=== PATIENT | female | born 1970 | race Caucasian/White ===

== ENCOUNTER 2018-03-31 09:13 | Emergency (ER) | payer BC, SELFPAY ==
[2018-03-31 09:41] VITALS: BP 103/68; PULSE 71; RESP 14; TEMP 36.7; O2SAT 100
--- NOTE | 2018-03-31 10:31 | DI.REPORT_ITS ---
SYMPTOM/DIAGNOSIS: TRAUMA, PAIN OVER LATERAL MALLEOLUS RIGHT ANKLE: There is soft tissue swelling around the malleoli. No fracture or ankle mortise widening is seen. Small bony densities seen at the posterior aspect of the navicular which may represent a small ossicle vs related to an old injury. There is a spur at the dorsal aspect of the navicular. IMPRESSION: No acute abnormality.
--- NOTE | 2018-03-31 10:31 | ED.GENADUL ---
Disposition Clinical Impression: Ankle sprain Disposition: HOME Condition: Fair Instructions: Ankle Sprain (ED) Additional Instructions: Encourage rest, ice, elevation. Tylenol and/or ibuprofen as needed for discomfort. Continue to use a lace up ankle brace for pain persists. Please follow-up with primary care in 1-2 weeks for reevaluation. If you develop increased pain, difficulty ambulating or other new/worsening symptoms please seek care urgently once again. Please wear more supportive shoes. Referrals: Kerrie Díaz [Primary Care Provider] - Medical Decision Making - Radiology Data Radiology results: report reviewed X-ray reviewed by radiologist. Advise no acute fracture. Degenerative changes of the talus and navicular. All avulsion fracture off the dorsal aspect of the navicular. Soft tissues are significant for lateral malleolus soft tissue swelling - Medical Decision Making Patient presents today with chief complaint of right ankle pain. She does have soft tissue swelling. Pain is primarily over the ATFL. However, she does also endorse some discomfort over the lateral malleolus is now having the difficulty with ambulation. Will obtain radiographic images to evaluate for possible bony abnormality. However, primary concern is for sprain. Patient is currently elevating. She declines any analgesics at this time. X-rays reviewed by myself with no acute abnormalities noted.. X-rays reviewed we reviewed by radiologist. They advised him some degenerative changes lateral soft tissue swelling. No acute fracture or dislocation noted. Discussed these findings with the patient. Encourage rest, ice, elevation. Pain is primarily over the ATFL. I advised that she has an ankle sprain. She will be fitted with an lace up ankle brace to help support the ankle and help with the swelling. We discussed new/worsening symptoms when to seek care urgently once again. Advise follow-up with primary care in 1-2 weeks if symptoms persist. All of her questions and concerns were addressed she is in agreement this plan. We discussed activities that she should avoid that may cause increased pain. History of Present Illness - General Chief complaint: Orthopedic Stated complaint: FOOT/ANKLE INJURY Time Seen by Provider: 03/31/18 10:31 Source: patient, RN notes reviewed Mode of arrival: ambulatory Limitations: no limitations - History of Present Illness Initial comments: Patient is a 47-year-old female presenting today with chief complaint of right ankle pain. She reports that 3 days ago she misstepped going up a flight of stairs. Denies any actual fall. Describes internal rotational incident. States that she did feel a rubber band snap and indicates the lateral ankle as the area of this discomfort. States initially the pain was quite minimal. However, after sitting on the foot yesterday she began having more severe pain. States that now she is having difficulty with ambulation. She walked into the department with an antalgic gait. Indicates the area of lateral malleolus is area of primary discomfort. Denies other injury the time the incident. Denies any calf or knee pain. Denies any pain in the foot. States she is ibuprofen yesterday but has not had anything as of yet for discomfort today. - Related Data Levonorgestrel [Mirena] 1 each IY 11/28/12 Aspirin [Aspirin EC] 81 mg PO DAILY tab-cap 01/19/14 Hydrochlorothiazide 25 mg PO DAILY tab-cap 01/19/14 Valsartan [Diovan] 160 mg PO DAILY tab-cap 01/19/14 Ibuprofen 600 mg PO QID PRN #20 tablet 07/15/17 TraZODone [Desyrel] 50 mg PO HS 07/15/17 Allergies Allergy/AdvReac Type Severity Reaction Status Date / Time sulfamethoxazole Allergy Hives Unverified 07/15/17 09:52 [From Bactrim] trimethoprim [From Bactrim] Allergy Hives Unverified 07/15/17 09:52 Review of Systems Constitutional: no symptoms reported. denies: chills, fever, malaise Respiratory: no symptoms reported Musculoskeletal: as per HPI Skin: as per HPI Neurological: as per HPI Past Medical History - Past Medical History Medical history: hypertension Surgical history: non-contributory General Exam - General Limitations: no limitations General appearance: alert, in no apparent distress - Eye Eye exam: Present: normal apperance - Respiratory Respiratory exam: Absent: respiratory distress - Extremities Exam Extremities exam: Present: tenderness, normal capillary refill, joint swelling. Absent: normal inspection (Exam the patient's right lower extremity significant for swelling along the lateral malleolus. No pain of the Achilles, negative Andrea test. No pain on palpation of the foot. No pain with palpation over the proximal fifth metatarsal. No pain on palpation over the calcaneus. Pain is primarily over the ATFL although she does endorse some discomfort with palpation of the lateral malleolus. No pain medially. Calf is soft and nontender. No pain to palpation of the fibular head or neck.), full ROM (Range of motion is limited secondary to discomfort, particularly with dorsiflexion.), calf tenderness - Neurological Exam Neurological exam: Present: alert, abnormal gait (Antalgic gait). Absent: motor sensory deficit - Psychiatric Psychiatric exam: Present: normal affect, normal mood - Skin Skin exam: Present: warm, dry, intact, normal color Course Vital Signs - 24 hr 03/31/18 09:41 Temperature 36.7 C Pulse 71 Respiratory 14 Rate Blood Pressure 103/68 Pulse Oximetry 100
--- NOTE | 2018-03-31 12:32 | DI.VRAD_ITS ---
EXAM: XR Right Ankle Complete, 3 or more Views EXAM DATE/TIME: 03/31/2018 10:32 AM CLINICAL HISTORY: 47 years old, female; Signs and symptoms; Other: Trauma, pain over lateral malleolus TECHNIQUE: XR Right ankle 3 or more views. COMPARISON: No relevant prior studies available. FINDINGS: Bones/joints: No acute fracture. Degenerative changes in the talus and navicular. Old avulsion fracture off the dorsal aspect of the navicular Soft tissues: Lateral malleolar soft tissue swelling. IMPRESSION: 1. Lateral malleolar soft tissue swelling. 2. No acute fracture. Dictated and Authenticated by: Hemant Blanca MD. Ordering:SADIQ HOWELL MD
== END 2018-03-31 12:43 | disposition home or self-care (01) ==
PROVIDERS: Emergency Provider Physician Assistant; PCP Nurse Practitioner Family
DX: S93.491A Sprain of other ligament of right ankle, initial encounter (principal); W10.8XXA Fall (on) (from) other stairs and steps, initial encounter; I10 Essential (primary) hypertension
CPT/HCPCS: 29515; 99284; 73610; 99282; L1902

== ENCOUNTER 2018-05-16 00:56 | Outpatient (CLI) | payer BC, SELFPAY ==
--- NOTE | 2018-05-16 12:50 | DI.MAMMO_ITS ---
SYMPTOM/DIAGNOSIS: SCREENING, Z12.31 PREVENTATIVE CARE Z00.00 MAMMOGRAM: Mammograms were interpreted according to the usual protocol including computer analysis with CAD system, tomosynthesis and C view imaging. Comparison with prior examinations. Breast density B. No masses or microcalcifications are seen. There is nothing to suggest malignancy. IMPRESSION: Negative mammogram. Routine screening is recommended. Category I. MQSA ASSESSMENT OF FINDINGS: Negative. Category 1. Patient will receive a letter notifying them of these results. BI-RADS category B. There are scattered areas of fibroglandular density.
== END 2018-05-16 01:16 ==
PROVIDERS: PCP Nurse Practitioner Family; Visit Provider Nurse Practitioner Family
DX: Z00.00 Encounter for general adult medical examination without abnormal findings (principal); Z12.31 Encounter for screening mammogram for malignant neoplasm of breast
CPT/HCPCS: 77063; 77067

== ENCOUNTER 2018-05-30 15:51 | Outpatient (CLI) | payer BC, SELFPAY ==
[2018-05-30 17:36] LABS: ALT 42 U/L (12-78); AST 25 U/L (15-37); Albumin 4.2 g/dL (3.4-5.0); Alkaline Phosphatase 69 U/L (46-116); Anion Gap 11.2 mmol/L (3-11); BUN 16 mg/dL (7-18); Bilirubin, Total 0.3 mg/dL (0.2-1.0); CO2 27.8 mmol/L (21.0-32.0); CREATININE 0.81 mg/dL (0.55-1.02); Calcium 8.9 mg/dL (8.5-10.1); Chloride 102 mmol/L (98-107); Cholesterol 145 mg/dL (50-200); Glucose 96 mg/dL (70-100); HDL Cholesterol 50 mg/dL (40-60); LDL CHOLESTEROL 78 mg/dL (<100); Potassium 3.9 mmol/L (3.5-5.1); Sodium 141 mmol/L (136-145); Triglyceride 138 mg/dL (30-150)
== END 2018-05-30 16:11 ==
LOC: LBO 06-04 14:24 → NCHCO 06-06 06:54
PROVIDERS: PCP Nurse Practitioner Family; Visit Provider Nurse Practitioner Family
DX: Z00.00 Encounter for general adult medical examination without abnormal findings (principal); Z13.228 Encounter for screening for other metabolic disorders; Z13.220 Encounter for screening for lipoid disorders
CPT/HCPCS: 36415; 80053; 80061; 83721

== ENCOUNTER 2019-02-21 18:39 | Emergency (ER) | payer BC, SELFPAY ==
[2019-02-21 18:51] VITALS: BP 134/88; PULSE 116; RESP 18; TEMP 37.5; O2SAT 95
[2019-02-21] MEDS: Normal Saline 1,000 ML 1000 ML IV (19:39)
[2019-02-21 19:43] LABS: Lactate-non-spesis 0.7 mmol/l (0.6-1.4)
[2019-02-21 19:50] LABS: Abs Immature Grans 0.03 k/cumm (0.0-0.09); Absolute Basophil Count 0.03 k/cumm (0.0-0.2); Absolute Eosinophil Count 0.19 k/cumm (0.0-0.7); Absolute Lymphocyte Count 0.89 k/cumm (1.2-3.4); Absolute Monocyte Count 0.87 k/cumm (0.11-0.7); Absolute Neutrophil Count 9.58 k/cumm (1.2-6.7); Basophils % 0.3; Eosinophils % 1.6; HCT 39.6 % (36.0-46.0); HGB 13.5 g/dL (12.0-15.5); Immature Grans % 0.3; Lymphocytes % 7.7; Mean Corp. HGB Concentration 34.1 g/dL (32.0-36.0); Mean Corpuscular Hemoglobin 29.7 pg (27.0-33.0); Mean Corpuscular Volume 87.2 fL (80-95); Mean Platelet Volume 9.9 fL (8.0-11.0); Monocytes % 7.5; Neutrophils % 82.6; Platelet Count 319 x1000/uL (130-400); RBC 4.54 m/cumm (4.00-5.20); RBC Distribution Width 13.1 % (11.7-14.6)
[2019-02-21 19:57] LABS: ALT 46 U/L (12-78); AST 26 U/L (15-37); Alkaline Phosphatase 80 U/L (46-116); Anion Gap 12.4 mmol/L (3-11); BUN 20 mg/dL (7-18); Bilirubin, Total 0.4 mg/dL (0.2-1.0); CO2 26.6 mmol/L (21.0-32.0); Chloride 99 mmol/L (98-107); Glucose 99 mg/dL (70-100); Potassium 3.4 mmol/L (3.5-5.1); Sodium 138 mmol/L (136-145); Total Protein 7.4 g/dL (6.4-8.2)
[2019-02-21] MEDS: Omnipaque 350 MG/ML 100 ML BTL IJ (20:01)
--- NOTE | 2019-02-21 20:12 | DI.CT_ITS ---
SYMPTOM/DIAGNOSIS: STRIDOR, SENSATION OF FOREIGN BODY IN THROAT, COUGH CHEST CT: CT examination of the chest was performed with a bolus infusion of 100 cc's of Omnipaque 350. Note is made of an approximately 2 cm. in diameter sclerotic lesion of what appears to be T 4 vertebral body. This is nonspecific but probably most likely to represent a benign process. No additional bony lesion is seen. Images obtained through the upper abdomen show unremarkable appearance of visualized portions of liver, spleen, adrenals, kidneys and pancreas. There are multiple calcified mediastinal lymph nodes consistent with prior granulomatous disease. Calcified right axillary lymph nodes also noted. No gross non-calcified adenopathy is seen. The tracheobronchial tree appears intact as visualized. There are predominantly linear areas of increased radiodensity in the left upper lobe and also in portions of the right lung which may represent scarring. Additionally, there are nonspecific areas of ground glass opacity in left upper lobe, chronic versus acute. Comparison with previous chest radiograph of 09/01/12 showed abnormal radiodensities in a region corresponding to the left upper lobe findings on today's examination and also corresponding to some of the right upper lobe findings on today's study. CONCLUSION: Intrapulmonary findings as described above are most consistent with chronic changes but the possibility of superimposed acute ground glass opacities in the left upper lobe/lingula cannot be excluded. Follow up chest CT recommended to re-evaluate this area in 4-[address]: CT examination of the cervical region was performed following the intravenous infusion of 100 cc's of Omnipaque 350. Visualized portions of the brain are unremarkable. Orbital structures appear intact. No significant cervical adenopathy. No abnormality of the vascular structures. Tracheal laryngeal structures appear intact. No free air is seen in the soft tissues. No evidence of abscess. CONCLUSION: Negative cervical CT.
[2019-02-21 20:25] VITALS: BP 119/72; PULSE 111; RESP 18; O2SAT 95
--- NOTE | 2019-02-21 21:13 | DI.VRAD_ITS ---
EXAM: CT Neck With Contrast EXAM DATE/TIME: 02/21/2019 7:23 PM CLINICAL HISTORY: 48 years old, female; Mass, lump, or swelling in the chest; Other: Sensation of fb in throat, cough; Additional info: Stridor, sensation of fb in throat, cough TECHNIQUE: Imaging protocol: Axial computed tomography images of the neck with intravenous contrast. Coronal and sagittal reformatted images were created and reviewed. Radiation optimization: All CT scans at this facility use at least one of these dose optimization techniques: automated exposure control; mA and/or kV adjustment per patient size (includes targeted exams where dose is matched to clinical indication); or iterative reconstruction. COMPARISON: CR CHEST 2 VIEWS PA,LAT 09/01/2012 7:31 AM FINDINGS: Nasopharynx: Normal. Oropharynx: Normal. No significant tonsillar enlargement. Hypopharynx: Normal. Larynx: Normal. Normal epiglottis. Retropharyngeal space: Normal. Submandibular/Parotid glands: Normal. Glands are normal in size. Thyroid: Normal. No enlarged or calcified nodules. Lymph nodes: There mild degenerative changes noted in the cervical spine therapy 2 small nonspecific level II lymph nodes in the neck. Trachea: Visualized trachea is unremarkable. Lungs: Normal as visualized. Bones/joints: Normal. No acute fracture. Soft tissues: Normal. No significant soft tissue swelling. IMPRESSION: 1. No evidence of a foreign body in the airway or esophagus. 2. No worrisome mass the neck is identified. EXAM: CT Chest With Contrast EXAM DATE/TIME: 02/21/2019 7:23 PM CLINICAL HISTORY: 48 years old, female; Mass, lump, or swelling in the chest; Other: Sensation of fb in throat, cough; Additional info: Stridor, sensation of fb in throat, cough TECHNIQUE: Imaging protocol: Axial computed tomography images of the chest with intravenous contrast. Coronal and sagittal reformatted images were created and reviewed. Radiation optimization: All CT scans at this facility use at least one of these dose optimization techniques: automated exposure control; mA and/or kV adjustment per patient size (includes targeted exams where dose is matched to clinical indication); or iterative reconstruction. Contrast material: [id number]; Contrast volume: 100 ml; Contrast route: IV 20G RAC; COMPARISON: CR CHEST 2 VIEWS PA,LAT 09/01/2012 7:31 AM FINDINGS: Lungs: The left lower lobe shows minimal scarring. Pleural space: Extensive abnormal reticular markings the in the left upper lobe extending in predominantly into the anterior segment and also somewhat posteriorly all way to the pleura with a small pleural thickening. Heart: Unremarkable. No cardiomegaly. No pericardial effusion. Aorta: Unremarkable. No aortic aneurysm. Lymph nodes: There diffuse calcified mediastinal lymph nodes bilaterally. The Bones/joints: In the mid thoracic spine there is some bridging anterolateral osteophytes. The upper vertebra at this bridging area shows a right-sided area of sclerosis measuring 1 cm in diameter. Soft tissues: Unremarkable. IMPRESSION: 1. Numerous calcified mediastinal lymph nodes consistent with previous granulomatous disease. There is a large amount of abnormal reticular densities in the left upper lobe predominantly the anterior segment. This all could just be scarring but a small air pneumonia in this region can't be excluded. 2. 1 cm area of sclerosis in a upper thoracic vertebral body anteriorly. This is nonspecific but probably benign. Dictated and Authenticated by: Yaw Penaloza MD. Ordering:WESLEY Baird MD
--- NOTE | 2019-02-21 21:15 | ED.GENADUL_ITS ---
Discharge Plan Disposition Patient Disposition: HOME Discharge Details Chief Complaint: RespSymp Clinical Impression: Pneumonia Primary Care Provider: Beltran Prince ED Provider: Oli Chávez Home Meds and New Rx's Prescriptions: New levofloxacin [Levaquin] 750 mg tablet 750 mg PO DAILY Qty: 4 RF: 0 Continued aspirin 81 MG tablet,delayed release (DR/EC) 81 mg PO DAILY RF: 0 hydrochlorothiazide 12.5 MG capsule 25 mg PO DAILY RF: 0 trazodone 50 MG tablet 50 mg PO HS RF: 0 ibuprofen 600 MG tablet 600 mg PO QID PRN (Reason: Pain) Qty: 20 RF: 0 bupropion HCl [Wellbutrin SR] 100 mg Tablet Sustained-Release 12 Hr 50 mg PO BID RF: 0 losartan 100 mg Tablet 100 mg PO DAILY RF: 0 No Action levonorgestrel [Mirena] 1 EACH intrauterine device 1 ea Intrauterine RF: 0 Discharge Instructions Instructions: Pneumonia (ED) Additional Instructions: Please take antibiotic as prescribed. Drink plenty of fluid to stay hydrated. Rest. Take ibuprofen 600mg every 6 hours for fever. Follow-up with your doctor. Call to schedule an appointment to be seen early next week. Return to the ER for worsening or new concerning symptoms. Referrals: Beltran Prince, [employer] [Primary Care Provider] - Medical Decision Making 48-year-old female here with nonproductive cough for the past couple days with associated chills and discomfort in her throat. Patient is saturating well in no respiratory distress. I do not appreciate any crackles on auscultation of her lungs. She is tachycardic and appears dehydrated. 1 L normal saline IV fluid bolus was given. Labs reviewed and mild leukocytosis noted. CT of neck interpreted by radiology: IMPRESSION: 1. No evidence of a foreign body in the airway or esophagus. 2. No worrisome mass the neck is identified. CT of chest interpreted by radiology: IMPRESSION: 1. Numerous calcified mediastinal lymph nodes consistent with previous granulomatous disease. There is a large amount of abnormal reticular densities in the left upper lobe predominantly the anterior segment. This all could just be scarring but a small air pneumonia in this region can't be excluded. 2. 1 cm area of sclerosis in a upper thoracic vertebral body anteriorly. This is nonspecific but probably benign. I reviewed all results with the patient. Patient aware that official final radiologic interpretation is still pending. Patient reassessed and tachycardia improved minimally with IVF bolus. Patient feeling better. I recommended additional IV fluid bolus and patient declined. I explained that she was still tachycardic and that this may indicate significant disease and that additional IV fluid is indicated and may help improve her condition. I explained that this would allow for further ED observation and reassessment. Patient declined treatment and further ED observation. Patient has decisional making capacity to provide informed refusal. Patient is requesting discharge. She plans to increase oral rehydration and agrees to return should she have any worsening or new concerning symptoms. Given CT finding of left upper lobe reticular densities and mediastinal calcified lymph nodes consistent with previous granulomatous disease, I think further outpatient work-up is warranted. Plan to treat with levofloxacin and have patient follow-up with PCP. Initial dose of levofloxacin was given here in the emergency department. If symptoms do not significantly improve with Levaquin, tuberculosis should be considered and tested. Patient understands importance of timely outpatient follow-up. Disposition decision was made weighing the risks and benefits of hospitalization versus outpatient treatment, the risk for further decompensation, and the patient's wishes. The patient was stable and requested discharge. Prior to discharge, my usual and customary return precautions were reviewed with the patient - this included follow-up instructions and reason to return to the emergency department if condition worsens, does not improve as expected, or other new concerns arise. HPI General Mode of arrival: ambulatory . Date/Time Provider Initiated Documentation: 02/21/19 18:49 . Limitations to Documentation: no limitations . Information obtained by: patient . HPI Narrative: 48yo f here with chief complaint of cough. Patient notes dry cough for the past couple days. Patient notes cough feels like when she has had bronchitis in the past. She has associated fever and chills. She also notes that she has sensation of foreign body in her throat. She has mild sore throat. No associated rash. No shortness of breath. Related Data Home Medications Medication Instructions Recorded Confirmed levonorgestrel [Mirena] 1 ea INTRAUTERINE 11/28/12 11/28/12 aspirin 81 mg PO DAILY tab-cap 01/19/14 02/21/19 hydrochlorothiazide 25 mg PO DAILY tab-cap 01/19/14 02/21/19 ibuprofen 600 mg PO QID PRN #20 tablet 07/15/17 02/21/19 trazodone 50 mg PO HS 07/15/17 02/21/19 bupropion HCl [Wellbutrin SR] 50 mg PO BID 02/21/19 02/21/19 levofloxacin [Levaquin] 750 mg PO DAILY #4 tab 02/21/19 losartan 100 mg PO DAILY 02/21/19 02/21/19 Previous Rx's Medication Instructions Recorded ibuprofen 600 mg PO QID PRN #20 tablet 07/15/17 levofloxacin [Levaquin] 750 mg PO DAILY #4 tab 02/21/19 Allergies Allergy/AdvReac Type Severity Reaction Status Date / Time sulfamethoxazole Allergy Hives Unverified 02/21/19 18:54 [From Bactrim] trimethoprim [From Bactrim] Allergy Hives Unverified 02/21/19 18:54 General Stated Complaint: RespSymp GEOFF: 3 Review of Systems Review of Systems All systems reviewed & are unremarkable except as noted in HPI and below Constitutional Reports fever(s) Cardiovascular Denies chest pain, Denies lightheadedness and Denies dyspnea Respiratory Reports cough and Denies dyspnea PFSH Medical History Hyperlipemia Hypertension Migraine Surgical History Biopsy of breast section Family History Other Diabetes Heart disease Hyperlipidemia Personal history of malignant neoplasm Social History Smoking/Tobacco Use Status: Never Alcohol Intake: current Alcohol Intake frequency: holidays/special occasions only Drug use: Never Do you feel safe at home: Yes Do you feel safe in your relationship?: Yes Exam Const General: cooperative and no acute distress HENMT Head: normocephalic Mouth: mucous membranes dry Throat: posterior oropharynx normal, tonsils normal, uvula midline and no peritonsillar masses Eyes Conjunctivae: normal conjunctivae Sclera: normal sclerae Neck Neck: no lymphadenopathy, trachea midline and supple Other: Hoarse voice Resp Auscultation: clear to auscultation bilaterally, no rales, no rhonchi and no wheezes Cardio Rate: tachycardic Rhythm: regular rhythm GI Palpation: soft, not firm, no guarding, no masses, not rigid and nontender Skin General skin exam: no rashes or lesions noted Neuro General: alert, awake, oriented x3 and tone normal Extrem General: no edema Psych Appearance: grossly normal Mental Status: mental status grossly normal Course Vital Signs Temperature 37.5 C 02/21/19 18:51 Pulse 116 H 02/21/19 18:51 Respiratory Rate 18 02/21/19 18:51 Blood Pressure 134/88 02/21/19 18:51 Pulse Oximetry 95 02/21/19 18:51 Temperature 37.5 C 02/21/19 18:51 Temperature Source Skin 02/21/19 18:51 Pulse 116 H 02/21/19 18:51 Respiratory Rate 18 02/21/19 18:51 Respiratory Effort Non-Labored 02/21/19 19:05 Respiratory Depth Normal 02/21/19 19:05 Blood Pressure 134/88 02/21/19 18:51 Blood Pressure Position Sitting 02/21/19 18:51 Pulse Oximetry 95 02/21/19 18:51 Oxygen Delivery Method Room Air 02/21/19 18:51 Oxygen Flow Rate 0 02/21/19 18:51 Pain Level 4 02/21/19 18:51
[2019-02-21] MEDS: Doxycycline Hyclate 100 MG CAP PO (21:25)
[2019-02-21] MEDS: levoFLOXacin 250 MG TAB 750 MG PO (21:37)
[2019-02-21 21:48] VITALS: BP 125/70; PULSE 109; RESP 18; O2SAT 98
== END 2019-02-21 21:45 | disposition home or self-care (01) ==
PROVIDERS: Emergency Provider Student in an Organized Health Care Education/Training Program; PCP Nurse Practitioner Family
DX: J18.9 Pneumonia, unspecified organism (principal); E86.0 Dehydration; I10 Essential (primary) hypertension
CPT/HCPCS: 36415; 70491; 80053; 96360; 99285; 71260; 83605; 85025; 99284; J3490

== ENCOUNTER 2019-07-14 02:22 | Outpatient (CLI) | payer BC, SELFPAY ==
--- NOTE | 2019-07-14 14:37 | DI.MAMMO_ITS ---
EXAM: MAMMO SCREENING CLINICAL HISTORY: SCREENING, Z12.39 TECHNIQUE: Mammograms were interpreted according to the usual protocol including computer analysis w Integrated biometrics CAD system, tomosynthesis and C-view imaging. COMPARISON: [id number] FINDINGS: The breasts are composed of scattered fibroglandular densities, breast density category B. There are no suspicious masses or suspicious microcalcifications. There has been no significant interval constantino e when compared with the prior images. IMPRESSION: Category 1, negative mammogram. Yearly screening mammography is recommended. BI-RADS Cat 1 - Negative Breast Density - Category B - Scattered areas of fibroglandular density
== END 2019-07-14 02:42 ==
PROVIDERS: PCP Nurse Practitioner Family; Visit Provider Nurse Practitioner Family
DX: Z12.31 Encounter for screening mammogram for malignant neoplasm of breast (principal)
CPT/HCPCS: 77063; 77067

== ENCOUNTER 2020-04-01 12:03 | Outpatient (REF) | payer BC, SELFPAY ==
--- NOTE | 2020-04-01 11:30 | PAPFT_PTH ---
PATIENT: Nimco Hood LOC: [facility] U#:[id number] AGE/SX: 49/F ROOM: RE04/01/[address]: CHRIS Talbot : 1970 BED: DIS: 04/01/2020 SPEC #: [id number] RECD: 04/01/20 13:01 STATUS: LALY REKay #: [id number] RIZWANA: 04/01/20 11:[address]: Shadia Soler DEPT: [facility] Cytology RECD BY: Jaja Alvarenga ENTERED: 04/01/20 13:02 SP TYPE: PAPFT OTHR DR: Beltran Prince Tissues: 1 - CX/ENDOCX FOR PAP SMEARS Procedures: PAP THIN PREP/UVM Screening HPV DNA PROBE Comments: [id number]
== END 2020-04-01 12:23 ==
LOC: LBN 12:03
PROVIDERS: PCP Nurse Practitioner Family; Visit Provider Nurse Practitioner Family
DX: R87.612 Low grade squamous intraepithelial lesion on cytologic smear of cervix (LGSIL) (principal); R87.810 Cervical high risk human papillomavirus (HPV) DNA test positive
CPT/HCPCS: 88142; 87624

== ENCOUNTER 2020-04-23 15:16 | Outpatient (REF) | payer BC, SELFPAY ==
[2020-04-23 15:53] LABS: COMMENT (LAB VIEW ONLY) 88.68 mg/dL; Microalb ug/mg Crea 10.4 ug/mg Cr
[2020-04-23 16:17] LABS: HCT 40.4 % (36.0-46.0); HGB 13.5 g/dL (11.2-15.7); MCHC 33.4 % (32.0-36.0); MCV 86.7 fL (80-95); MPV 10.2 fL (8.0-11.0); Platelet Count 354 10^3/uL (130-400); RBC 4.66 10^6/uL (3.93-5.22); RDW 12.3 % (11.7-14.6); RDW-SD 39.4 fL; WBC 5.97 10^3/uL (4.4-10.8)
[2020-04-23 17:29] LABS: ALT 48 U/L (14-59); AST 23 U/L (15-37); Albumin 4.3 g/dL (3.4-5.0); Alkaline Phosphatase 64 U/L (46-116); Anion Gap 7.8 mmol/L (3-11); BUN 12 mg/dL (7-18); Bilirubin, Total 0.3 mg/dL (0.2-1.0); CO2 29.2 mmol/L (21.0-32.0); CREATININE 0.82 mg/dL (0.55-1.02); Calcium 9.5 mg/dL (8.5-10.1); Calculated LDL 63 mg/dL (<100); Chloride 104 mmol/L (98-107); Cholesterol 156 mg/dL (<200); Glucose 110 mg/dL (74-106); HDL Cholesterol 48 mg/dL (40-60); Potassium 3.8 mmol/L (3.5-5.1); Sodium 141 mmol/L (136-145); TSH (W/Ref FT4) 1.11 uIU/mL (0.36-3.74); Triglyceride 225 mg/dL (<150)
[2020-04-26 10:51] LABS: Hepatitis C Ab w Rflx HCV PCR Negative (Negative)
[2020-04-26 11:03] LABS: HIV-1/2 Ag & Ab Screen Negative (Negative)
== END 2020-04-23 15:36 ==
LOC: NCHCN 15:16
PROVIDERS: PCP Nurse Practitioner Family; Visit Provider Nurse Practitioner Family
DX: I10 Essential (primary) hypertension (principal); E78.5 Hyperlipidemia, unspecified; R53.83 Other fatigue; Z11.4 Encounter for screening for human immunodeficiency virus [HIV]; Z11.59 Encounter for screening for other viral diseases
CPT/HCPCS: 80053; 80061; 85027; 86803; 87389; 82043; 82570; 84443

== ENCOUNTER 2020-04-28 09:03 | Outpatient (REF) | payer BC, SELFPAY ==
--- NOTE | 2020-04-28 08:55 | CER_PTH ---
PATIENT: Nimco Hood LOC: [facility] U#:[id number] AGE/SX: 49/F ROOM: RE04/28/[address]: Luh Colon DO : 1970 BED: DIS: 04/28/2020 SPEC #: [id number] RECD: 04/28/20 12:44 STATUS: LALY REQ #: [id number] RIZWANA: 04/28/20 08:[address]: Luh Colon DEPT: Surgical Specimen RECD BY: Irais Nice ENTERED: 04/28/20 12:46 SP TYPE: CER OTHR DR: Beltran Prince Tissues: 1 - CERVICAL BIOPSY 2 - ENDOCERVICAL BX/CURRETTE Procedures: GROSS AND MICRO LEVEL 4 Comments: [id number]
== END 2020-04-28 09:23 ==
LOC: LBN 09:03
PROVIDERS: PCP Nurse Practitioner Family; Visit Provider Obstetrics & Gynecology
DX: Z87.42 Personal history of other diseases of the female genital tract (principal); R87.810 Cervical high risk human papillomavirus (HPV) DNA test positive
CPT/HCPCS: 88305

== ENCOUNTER 2021-06-01 11:32 | Outpatient (REF) | payer BC, SELFPAY ==
[2021-06-01 14:46] LABS: ALT 66 U/L (14-59); AST 32 U/L (15-37); Albumin 4.5 g/dL (3.4-5.0); Alkaline Phosphatase 76 U/L (46-116); Anion Gap 11.7 mmol/L (3-11); BUN 12 mg/dL (7-18); Bilirubin, Total 0.3 mg/dL (0.2-1.0); CO2 27.3 mmol/L (21.0-32.0); CREATININE 0.8 mg/dL (0.55-1.02); Calcium 9.6 mg/dL (8.5-10.1); Calculated LDL 65 mg/dL (<100); Chloride 102 mmol/L (98-107); Cholesterol 156 mg/dL (<200); Glucose 79 mg/dL (74-106); HDL Cholesterol 50 mg/dL (40-60); Potassium 4.8 mmol/L (3.5-5.1); Sodium 141 mmol/L (136-145); TSH (W/Ref FT4) 1.15 uIU/mL (0.36-3.74); Total Protein 7.5 g/dL (6.4-8.2); Triglyceride 207 mg/dL (<150)
== END 2021-06-01 11:33 | disposition home or self-care (01) ==
LOC: NCHCN 11:32
PROVIDERS: PCP Nurse Practitioner Family; Visit Provider Nurse Practitioner
DX: I10 Essential (primary) hypertension (principal); E78.5 Hyperlipidemia, unspecified
CPT/HCPCS: 80053; 80061; 84443

== ENCOUNTER → 2022-02-27 02:16 | Outpatient (CLI) | payer BC, SELFPAY ==
--- NOTE | 2022-02-27 12:15 | DI.MAMMO_ITS ---
Exam(s) MAMMO SCREENING EXAM: MAMMO SCREENING CLINICAL HISTORY: SCREENING, Z12.39. TECHNIQUE: Bilateral full field digital CC and MLO mammographic images were obtained with 3D tomosyn thesis and utilizing computer aided detection (CAD). COMPARISON: Prior mammograms were reviewed, the most recent being June 2019. FINDINGS: No CAD designations. There are no new spiculated masses nor malignant appearing microcalcification groups. There is no significant architectural distortion nor skin thickening-retraction. IMPRESSION: No radiographic evidence of malignancy. BI-RADS Category 1 - Negative Breast Density - Category B - Scattered areas of fibroglandular density Breast density Category C or D implies that the patient has dense breast tissue. Dense breast tissue can make it harder to find cancer on a mammogram. Dense breast tissue is also associated with an incr eased risk of breast cancer. This information about the result of the mammogram report was provided to the patient to raise their awareness. Use this report when you speak with the patient about their risks for breast cancer, which includes their family history. At that time, you may recommend additional screening tests (Ultrasoun d or MRI) as these tests may add significant information. A negative radiographic report should not delay biopsy if a dominant or clinically suspicious mass is present. Up to ten percent of cancers are not identified on mammography. A negative report may reinforce clinical impression. Adenosis and dense breasts may obscure an underlying neoplasm. False positive reports average 6 to 10%. Patient will receive a letter notifying them of these results.
== END ==
PROVIDERS: PCP Nurse Practitioner Family; Visit Provider Nurse Practitioner Family
DX: Z12.31 Encounter for screening mammogram for malignant neoplasm of breast (principal)
CPT/HCPCS: 77063; 77067

== ENCOUNTER 2022-03-06 06:56 | Day surgery (SDC) | payer BC, SELFPAY ==
--- NOTE | 2022-03-06 06:10 | W.ANESPRE ---
General Info Date of Service Date Performed: 03/06/22 Height: 4 ft 11 in Weight: 74.843 kg Body Mass Index (BMI): 33.3 Surgical Procedure: Operation Date: 03/06/22 08:05 Proposed Procedure Side Surgeon p Colonoscopy Ruthy Evans MD Meds Allergies and Home Medications Allergies Allergy/AdvReac Type Severity Reaction Status Date / Time sulfamethoxazole Allergy Hives Verified 03/06/22 07:07 [From Bactrim] trimethoprim [From Bactrim] Allergy Hives Verified 03/06/22 07:07 Home Medication Medication Instructions Recorded levonorgestrel 20 mcg/24 hours (7 1 ea intrauterine DIRECTED 11/28/12 yrs) 52 mg intrauterine device (Mirena) aspirin 81 mg tablet,delayed 81 mg PO DAILY 01/19/14 release ibuprofen 600 mg tablet 600 mg PO QID PRN Pain #20 tabs 07/15/17 amitriptyline 10 mg tablet 10 mg PO QHS 07/21/21 atorvastatin 20 mg tablet 20 mg PO DAILY 07/21/21 clobetasol 0.05 % topical cream 1 applic topical BID 07/21/21 bupropion HCl 100 mg tablet,12 hr 100 mg PO BID 02/16/22 sustained-release (Wellbutrin SR) losartan 100 mg tablet 50 mg PO DAILY 02/16/22 Current Visit Medications: Current Medications Generic Name Dose Route Start Last Admin Trade Name Freq PRN Reason Stop Dose Admin Ringer's Solution 1,000 mls @ 80 mls/hr 03/06/22 06:00 IV 04/02/22 23:59 INFUSION SRIDHAR IV Miscellaneous Supplies 1 each 03/06/22 06:00 Iv Access IV 04/02/22 23:59 DIRECTED SRIDHAR Sodium Chloride 0 ml 03/06/22 06:00 Normal Saline Flush 10 Ml Syr IV 04/02/22 23:59 PRN PRN Sodium Chloride 0 ml 03/06/22 06:00 Normal Saline 10 Ml Vial IJ 04/02/22 23:59 DIRECTED PRN Sterile Water 0 ml 03/06/22 06:00 Water,Injection,Sterile 10 Ml Vial IJ 04/02/22 23:59 DIRECTED PRN PFSH Active Problems Active Problems: Problem Status Onset Code Screening for colon cancer Z12.11 Medical History Medical History Fibrocystic breast Former smoker History of basal cell cancer Hyperlipemia Hypertension IUD surveillance LGSIL (low grade squamous intraepithelial dysplasia) Migraine Pleural scarring Surgical History Surgical History Biopsy of breast R breast 1993 benign section Tobacco Smoking/Tobacco Use Status: Never Alcohol Alcohol Intake: current Alcohol intake frequency: holidays/special occasions only Substance Use Substance use: Never Substance use type: does not use Prental History History 3 Para 3 Hx # Term Pregnancies Multiple births Hx # Pregnancies Ectopic pregnancies AB induced Hx Number of Living Children AB spontaneous Vital Signs and Lab Results Vital Signs Most Recent Vital Signs in EMR: Temp Pulse Resp BP Pulse Ox 36.6 C 89 16 119/86 98 03/06/22 07:10 03/06/22 07:10 03/06/22 07:10 03/06/22 07:10 03/06/22 07:10 Lab Results Blood Type / Crossmatch: No Data to Display Complete Blood Count: No Data to Display Complete Metabolic Panel: No Data to Display Liver Function Panel: No Data to Display Coagulation Panel: No Data to Display Cardiac Panel: No Data to Display Arterial Blood Gas: No Data to Display Venous Blood Gas: No Data to Display Pancreas Panel: No Data to Display Thyroid Panel: No Data to Display Infectious Disease: No Data to Display Blood Cultures: No Data to Display Toxicology Panel: No Data to Display Panel: No Data to Display Anesthesia Assessment and Plan Anesthesia History Personal History: No History of Anesthesia Complications Family History: No Family History of Anesthesia Complications Exercise Tolerance Exercise Tolerance: Metabolic Equivalents>4 Cardiac & Pulmonary Exam Cardiac Exam: Normal S1/S2 Heart Sounds Pulmonary Exam: Clear Bilateral Breath Sounds Implantable Cardiac Device Does patient have a Pacemaker or an ICD?: No Airway Exam Known Difficult Airway: No Mallampati Class: 3 Mouth Opening: Normal (> 3cm) Thyromental Distance: Greater than 3 cm Neck Range of Motion: Full ROM Neck Circumference: Normal Teeth Condition: Normal Dentition ASA Classification ASA Score: ASA 2 Emergency Case?: No NPO Status NPO Status: NPO Clears >2 hours, Solids >8 hours Status Status: Not Relevant due to Medical History Anesthesia Plan Resuscitation Status: Full Code Anesthesia Technique: General Anesthesia Airway Planned: Natural Airway Monitors Used: Standard Monitors Preoperative Comments:: 51 yo female for screening colo. Sig PMHx: HTN (losartan), migraines, former, smoker, pleural scarring.
--- NOTE | 2022-03-06 06:13 | W.COLOREPORT ---
Colonoscopy Report Date of procedure: 03/06/22 Pre-op diagnosis general: colon cancer screening/ Family hx of colon cancer Post-op diagnosis procedure note: other (mild vazquez-diverticulosis) Procedure: Colonoscopy Surgeon: Ruthy Evans Anesthesia Type: General:No Airway Estimated blood loss (mL): 0 Pathology: none sent Complications: None Disposition: same day Indications: The patient is here for Colonoscopy pre-op.?She reports a family history of colon cancer in her paternal grandfather.??She has not had any bowel habit changes. -Discussed colonoscopy bowel prep as well as the procedure. Discussed possible complications of the procedure to include bleeding, pain, perforation, missed small lesion/polyp, sore throat, aspiration and adverse reaction to the medications. Questions were answered to patient?s satisfaction. No guarantees were implied or given. Prep: Miralax/Dulcolax Procedure Start Time: 07:52 Procedure End Time: 08:20 Retraction Time: 9 minutes Findings: mild vazquez-diverticulosis Procedure Description: After informed consent was obtained the patient was taken to the procedure room and placed in a left decubitous position. Monitors were applied and a time out was done. The patients name, date of , procedure, allergies to medications and metal in their body was reviewed. The patient was then sedated. Once sedated and comfortable a rectal exam was done. External exam was normal. Internal exam revealed a normal sphincter tone and no palpable masses. The scope was then introduced and retro-flexed. No internal hemorrhoids, polyps or masses were identified on retro-flexion. The scope was then advanced to the cecum without difficulty. The ileocecal vlave and appendiceal orifice were identified. The prep was good. The scope was then slowly retracted over 9 minutes back into the rectum. There were no polyps. There was mild vazquez- diverticulosis noted. The scope was removed and the patient was woken up and taken back to Same day surgery in stable condition. The patient tolerated the procedure well and there were no immediate complications. Follow up: The patient should follow up in 5 years unless they develop changes in bowel habits or other new gastrointestinal complaints.
--- NOTE | 2022-03-06 06:14 | W.PM.DSUDISC ---
Discharge Plan Disposition Patient Disposition: HOME Condition: Good Discharge Details Reason For Visit: colonoscopy Attending Provider: Ruthy Evans Primary Care Provider: Beltran Prince Home Meds and New Rx's Prescriptions: Continued aspirin 81 MG tablet,delayed release (DR/EC) 81 mg PO DAILY atorvastatin 20 mg tablet 20 mg PO DAILY amitriptyline 10 mg tablet 10 mg PO QHS clobetasol 0.05 % cream 1 applic topical BID Mirena 1 EACH intrauterine device 1 ea Intrauterine DIRECTED ibuprofen 600 MG tablet 600 mg PO QID PRN (Reason: Pain) Qty: 20 0RF bupropion HCl [Wellbutrin SR] 100 mg tablet sustained-release 12 hr 100 mg PO BID losartan 100 mg tablet 50 mg PO DAILY Discharge Instructions Instructions: Diverticulosis (DC) Additional Instructions: Findings: mild diverticulosis Follow up: 5 years Please call if you develop: fevers >101.5 Nausea or Vomiting Abdominal pain that is not transient Rectal bleeding that is more then a tbsp A hard abdomen and inability to pass gas DAY SURGERY UNIT POST ENDOSCOPY INSTRUCTIONS Instructions for everyone who is given Anesthesia: For your safety, please do the following for the next 24 Hours: a. Do not drive or operate dangerous equipment b. Do not drink alcohol beverages or use any recreational drugs for the first 24 hours or while taking pain medications. The medications in your body may have a reaction that can be dangerous. c. Do not make any important decisions or sign any important papers 1. Generally there are no restrictions on your activity after a day or so has gone by, but you may feel a bit fatigued for a few days. 2. After you arrive home you may have a light meal and return to a normal diet as you can tolerate it without feeling sick to your stomach. 3. After surgery, you may feel pain or discomfort. This should be only transient, but if it persists please contact your doctor. 4. If there are any questions regarding the findings of your procedure, please feel free to contact your doctor. 6. If you are unable to contact your doctor with a problem, contact the hospital at [phone]. 7. Continue all your regular medications unless directed otherwise. I understand the above instructions and have no questions. Signature of Patient or Responsible Adult Escort Date/Time Name of Responsible Adult Escort Signature of Nurse Date/Time Activity:: Activity as Tolerated Diet:: high fiber Discharge Orders Discharge Orders: Discharge Order (Routine); Ordered 03/06/22 Ordered By: Ruthy Eavns
[2022-03-06 07:10] VITALS: BP 119/86; PULSE 89; RESP 16; TEMP 36.6; O2SAT 98
[2022-03-06 07:19] VITALS: BMI 33.3
[2022-03-06] MEDS: Lactated Ringers 1,000 ML 80 ML IV (07:57)
[2022-03-06 08:32] VITALS: BP 94/58; PULSE 84; RESP 16; TEMP 36.7; O2SAT 98
--- NOTE | 2022-03-06 08:37 | W.ANESPOSTOP ---
Postoperative Evaluation Date, Time and Location Date Performed: 03/06/22 Time Performed: 08:37 Patient Location: Day Surgery Unit Vital Signs Most Recent Imported Vital Signs: Most Recent Vital Signs Temp Pulse Resp BP Pulse Ox 36.7 C 84 16 94/58 L 98 03/06/22 08:32 03/06/22 08:32 03/06/22 08:32 03/06/22 08:32 03/06/22 08:32 Pain Score Most Recent Pain Score: Most Recent Pain Score Pain Level 0 03/06/22 08:32 Assessment Mental Status: Awake (Alert & Oriented to Patient Baseline) Airway and Respiratory Function: Patent airway with normal (patient baseline) respiratory exam Cardiovascular Function: Hemodynamically Stable Hydration Status: Adequately Hydrated Nausea & Vomiting: No Nausea or Vomiting Pain: Pt. Denies Any Pain Peripheral Nerve Block: Patient did not receive a nerve block
[2022-03-06 09:00] VITALS: BP 113/72; PULSE 80; RESP 16; TEMP 36.6; O2SAT 99
== END 2022-03-06 09:39 | disposition home or self-care (01) ==
PROVIDERS: PCP Nurse Practitioner Family; Visit Provider Surgery
PROC: 0DJD8ZZ Inspection of Lower Intestinal Tract, Via Natural or Artificial Opening Endoscopic (ICD-10-PCS; CPT 45378; principal; 2022-03-06 08:00)
DX: Z12.11 Encounter for screening for malignant neoplasm of colon (principal); Z80.0 Family history of malignant neoplasm of digestive organs; K57.30 Diverticulosis of large intestine without perforation or abscess without bleeding
CPT/HCPCS: 45378

== ENCOUNTER 2022-12-14 15:21 | Outpatient (REF) | payer BC, SELFPAY ==
[2022-12-14 19:14] LABS: ALT 52 U/L (14-59); AST 33 U/L (15-37); Albumin 4.2 g/dL (3.4-5.0); Alkaline Phosphatase 76 U/L (46-116); Anion Gap 7.8 mmol/L (3-11); BUN 14 mg/dL (7-18); Bilirubin, Total 0.3 mg/dL (0.2-1.0); CO2 28.2 mmol/L (21.0-32.0); CREATININE 0.8 mg/dL (0.55-1.02); Calcium 9.4 mg/dL (8.5-10.1); Chloride 104 mmol/L (98-107); Glucose 105 mg/dL (74-106); Potassium 3.7 mmol/L (3.5-5.1); Sodium 140 mmol/L (136-145); TSH (W/Ref FT4) 0.99 uIU/mL (0.36-3.74); Total Protein 7.4 g/dL (6.4-8.2)
== END 2022-12-14 15:22 | disposition home or self-care (01) ==
LOC: NCHCN 15:21
PROVIDERS: Visit Provider Nurse Practitioner Family
DX: I10 Essential (primary) hypertension (principal); Z83.49 Family history of other endocrine, nutritional and metabolic diseases
CPT/HCPCS: 80053; 84443

== ENCOUNTER 2022-12-19 15:16 | Outpatient (REF) | payer BC, SELFPAY ==
--- NOTE | 2022-12-19 14:45 | PAPFT_PTH ---
PATIENT: Nimco Hood LOC: [facility] U#:[id number] AGE/SX: 52/F ROOM: RE12/19/[address]: Luh Colon DO : 1970 BED: DIS: 12/19/2022 SPEC #: [id number] RECD: 12/19/22 18:16 STATUS: LALY REQ #: [id number] RIZWANA: 12/19/22 14:[address]: Luh Colon DEPT: [facility] Cytology RECD BY: Jaja Alvarenga Tissues: 1 - CX/ENDOCX FOR PAP SMEARS Procedures: PAP THIN PREP/UVM Screening HPV DNA PROBE Comments: [id number]
== END 2022-12-19 15:17 | disposition home or self-care (01) ==
LOC: LBN 15:16
PROVIDERS: Visit Provider Obstetrics & Gynecology
DX: N89.8 Other specified noninflammatory disorders of vagina (principal); Z12.4 Encounter for screening for malignant neoplasm of cervix; R87.612 Low grade squamous intraepithelial lesion on cytologic smear of cervix (LGSIL); Z11.51 Encounter for screening for human papillomavirus (HPV)
CPT/HCPCS: 88142; 87480; 87510; 87624; 87660

== ENCOUNTER 2023-03-19 02:45 | Outpatient (CLI) | payer BC, SELFPAY ==
[2023-03-19 10:21] LABS: Abs Immature Grans 0.02 10^3/uL (0.0-0.06); Absolute Basophil Count 0.06 10^3/uL (0.0-0.2); Absolute Eosinophil Count 0.14 10^3/uL (0.0-0.7); Absolute Lymphocyte Count 1.53 10^3/uL (1.2-3.4); Absolute Monocyte Count 0.38 10^3/uL (0.1-0.8); Absolute Neutrophil Count 3.21 10^3/uL (1.2-6.7); Basophils % 1.1; Eosinophils % 2.6; HCT 41.4 % (36.0-46.0); HGB 13.7 g/dL (11.2-15.7); Immature Grans % 0.4; Lymphocytes % 28.7; MCH 28.2 pg (27.0-33.0); MCHC 33.1 % (32.0-36.0); MCV 85 fL (80-95); MPV 9.7 fL (8.0-11.0); Monocytes % 7.1; Neutrophils % 60.1; Platelet Count 357 10^3/uL (130-400); RBC 4.85 10^6/uL (3.93-5.22); RDW 12.5 % (11.7-14.6); WBC 5.34 10^3/uL (4.4-10.8)
== END 2023-03-19 02:46 | disposition home or self-care (01) ==
LOC: LBO 02:46
PROVIDERS: Visit Provider Obstetrics & Gynecology
DX: Z01.818 Encounter for other preprocedural examination (principal)
CPT/HCPCS: 36415; 86850; 86900; 86901; 85025

== ENCOUNTER 2023-03-21 05:37 | Day surgery (SDC) | payer BC, SELFPAY ==
[2023-03-21] VITALS (9 sets, daily range): BP systolic 110–149; BP diastolic 73–95; PULSE 74–88; RESP 14–20; TEMP 36–36.6; O2SAT 98–100; BMI 32.3
--- NOTE | 2023-03-21 06:19 | W.ANESPRE ---
General Info Date of Service Date Performed: 03/21/23 Height: 4 ft 11 in Weight: 72.575 kg Body Mass Index (BMI): 32.3 Surgical Procedure: Operation Date: 03/21/23 07:40 Proposed Procedure Side Surgeon p Colposcopy Luh Colon DO s Insertion of Mirana Luh Colon DO Meds Allergies and Home Medications Allergies Allergy/AdvReac Type Severity Reaction Status Date / Time sulfamethoxazole Allergy Hives Verified 03/20/23 11:23 [From Bactrim] trimethoprim [From Bactrim] Allergy Hives Verified 03/20/23 11:23 Home Medication Medication Instructions Recorded aspirin 81 mg tablet,delayed 81 mg PO DAILY 01/19/14 release ibuprofen 600 mg tablet 600 mg PO QID PRN Pain #20 tabs 07/15/17 amitriptyline 10 mg tablet 10 mg PO QHS 07/21/21 atorvastatin 20 mg tablet 20 mg PO DAILY 07/21/21 clobetasol 0.05 % topical cream 1 applic topical BID 07/21/21 bupropion HCl 100 mg tablet,12 hr 100 mg PO BID 02/16/22 sustained-release (Wellbutrin SR) losartan 100 mg tablet 50 mg PO DAILY 02/16/22 Current Visit Medications: Current Medications Generic Name Dose Route Start Last Admin Trade Name Freq PRN Reason Stop Dose Admin Ringer's Solution 1,000 mls @ 125 mls/hr 03/21/23 06:00 IV 04/19/23 23:59 INFUSION SRIDHAR IV Miscellaneous Supplies 1 each 03/21/23 06:00 Iv Access IV 04/19/23 23:59 DIRECTED SRIDHAR Sodium Chloride 0 ml 03/21/23 06:00 Normal Saline Flush 10 Ml Syr IV 04/19/23 23:59 PRN PRN Sodium Chloride 0 ml 03/21/23 06:00 Normal Saline 10 Ml Vial IJ 04/19/23 23:59 DIRECTED PRN Sterile Water 0 ml 03/21/23 06:00 Water,Injection,Sterile 10 Ml Vial IJ 04/19/23 23:59 DIRECTED PRN PFSH Active Problems Active Problems: Problem Status Onset Code Pre-op testing Z01.818 Heavy menstrual bleeding N92.0 Family history of colon cancer Z80.0 Normal colonoscopy Medical History Medical History Fibrocystic breast Former smoker History of basal cell cancer Hyperlipemia Hypertension IUD surveillance LGSIL (low grade squamous intraepithelial dysplasia) Migraine Pleural scarring Screening for colon cancer Surgical History Surgical History Biopsy of breast R breast 1993 benign section History of colonoscopy (~02/2022) Tobacco Smoking/Tobacco Use Status: Never Alcohol Alcohol Intake: current Alcohol intake frequency: holidays/special occasions only Substance Use Substance use: Never Substance use type: does not use Prental History History 3 Para 3 Hx # Term Pregnancies Multiple births Hx # Pregnancies Ectopic pregnancies AB induced Hx Number of Living Children AB spontaneous Vital Signs and Lab Results Vital Signs Most Recent Vital Signs in EMR: Temp Pulse Resp BP Pulse Ox 36.6 C 82 18 140/95 H 98 03/21/23 06:15 03/21/23 06:15 03/21/23 06:15 03/21/23 06:15 03/21/23 06:15 Lab Results Blood Type / Crossmatch: Patient ABO/Rh A Negative 03/19/23 Antibody Screen NEGATIVE 03/19/23 Complete Blood Count: White Blood Count 5.34 10^3/uL (4.4-10.8) 03/19/23 10:04 Red Blood Count 4.85 10^6/uL (3.93-5.22) 03/19/23 10:04 Hemoglobin 13.7 g/dL (11.2-15.7) 03/19/23 10:04 Hematocrit 41.4 % (36.0-46.0) 03/19/23 10:04 Platelet Count 357 10^3/uL (130-400) 03/19/23 10:04 Complete Metabolic Panel: No Data to Display Liver Function Panel: No Data to Display Coagulation Panel: No Data to Display Cardiac Panel: No Data to Display Arterial Blood Gas: No Data to Display Venous Blood Gas: No Data to Display Pancreas Panel: No Data to Display Thyroid Panel: No Data to Display Infectious Disease: No Data to Display Blood Cultures: No Data to Display Toxicology Panel: No Data to Display Panel: No Data to Display Anesthesia Assessment and Plan Anesthesia History Personal History: No History of Anesthesia Complications Family History: No Family History of Anesthesia Complications Exercise Tolerance Exercise Tolerance: Metabolic Equivalents>4 Cardiac & Pulmonary Exam Cardiac Exam: Normal S1/S2 Heart Sounds Pulmonary Exam: Clear Bilateral Breath Sounds Implantable Cardiac Device Does patient have a Pacemaker or an ICD?: No Airway Exam Known Difficult Airway: No Mallampati Class: 3 Mouth Opening: Normal (> 3cm) Thyromental Distance: Greater than 3 cm Neck Range of Motion: Full ROM Neck Circumference: Normal Teeth Condition: Normal Dentition ASA Classification ASA Score: ASA 2 Emergency Case?: No NPO Status NPO Status: NPO Clears >2 hours, Solids >8 hours Status Status: Negative HCG Anesthesia Plan Resuscitation Status: Full Code Anesthesia Technique: General Anesthesia Airway Planned: Natural Airway Monitors Used: Standard Monitors Preoperative Comments:: 51 yo female for colposcopy and mirena placement. Denies major changes in health history. Sig PMHx: HTN (losartan), migraines, never smoker, pleural scarring. Previous Anes: - colo, prop, natural airway, no issues.
[2023-03-21] MEDS: Lactated Ringers 1,000 ML 125 ML IV (06:39)
--- NOTE | 2023-03-21 08:01 | CER_PTH ---
PATIENT: Nimco Hood LOC: [facility] U#:[id number] AGE/SX: 52/F ROOM: RE03/21/[address]: Luh Colon DO : 1970 BED: DIS: 03/21/2023 SPEC #: [id number] RECD: 03/21/23 12:41 STATUS: LALY REQ #: [id number] RIZWANA: 03/21/23 08:[address]: Luh Colon DEPT: Surgical Specimen RECD BY: Jaja Alvarenga ENTERED: 03/21/23 12:45 SP TYPE: CER OT DR: Unknown,Unknown Tissues: 1 - CERVICAL BIOPSY 2 - CERVICAL BIOPSY 3 - ENDOCERVICAL BX/CURRETTE 4 - CERVICAL BIOPSY Procedures: GROSS AND MICRO LEVEL 4 Comments: [id number]
[2023-03-21] MEDS: Silver Nitrate Stick 1 EACH (08:11)
--- NOTE | 2023-03-21 08:28 | ROE_ITS ---
Date of service: 03/21/23 Time of Service: 08:28 Operative Note Operative Note DATE OF PROCEDURE: 03/21/23 PRE-OP DIAGNOSIS: Cervical dysplasia and abnormal uterine bleeding POST-OP DIAGNOSIS: same (With cervical polyp) PROCEDURE: Colposcopy with cervical biopsies and endocervical curettage. Cervical polypectomy. Placement of Mirena system ANESTHESIA TYPE: MAC Refer to Anesthesia Record ESTIMATED BLOOD LOSS: 10 PATHOLOGY: other (1. Cervical biopsy at 9:00 2. Cervical biopsy at 12:00 3. Endocervical curettage 4. Endocervical polyp) COMPLICATIONS: None Patient was transported to: PACU Patient's condition: stable Implants: Mirena IUD expiration 12/2024. Lot number [id number] Indications: Low-grade squamous intraepithelial lesion, heavy menstrual bleeding, inability to visualize cervix in office. Findings: Small anteflexed uterus. Colposcopic examination with acetowhite change from 9- 12 o'clock. Small endocervical polyp. Procedure Description: After full informed consent was obtained, patient was taken the operating suite with an IV running. She was placed in the modified dorsal lithotomy position in [facility] stirrups. A timeout was held. Speculum was inserted into the vaginal vault after acetic acid was placed on the vulva. Colposcope was used to visualize the vulva, vagina, and cervix. There was no evidence of acetowhite change, mosaicism or punctations on the vulva, or intravaginally. After some difficulty in visualizing the cervix, cervix was identified and satisfactory colposcopic examination performed. There is noted to be acetowhite change from the 9 to 12 o'clock position with no areas of mosaicism. Cervical biopsy was performed at the 9:00, and 12 o'clock position and cauterized with silver nitrate. Endocervical curettage was performed with a Yves. Endocervical polyp identified was removed with a ring forcep. At this point, the cervix was recleansed with Betadine and a single-tooth tenaculum used to grasp the posterior lip of the cervix. The cervical os was dilated with Jorge L dilators to the point that the Mirena system could be inserted. Her uterus sounded to 6 cm. The Mirena system was inserted through the cervical os and deployed. Strings cut and left long to approximately 4 cm due to the anteverted nature of her cervix. Speculum was then removed and the patient was returned to the dorsal supine position. She woke from anesthesia with ease. Complications: None apparent Implant: Mirena IUD with expiration 12/2024 Pathology: 1. Cervical biopsy at 9:00 2. Cervical biopsy at 12:00 3. Endocervical curettage 4. Cervical polyp
--- NOTE | 2023-03-21 09:20 | W.ANESPOSTOP ---
Postoperative Evaluation Date, Time and Location Date Performed: 03/21/23 Time Performed: 09:20 Patient Location: Day Surgery Unit Vital Signs Most Recent Imported Vital Signs: Most Recent Vital Signs Temp Pulse Resp BP Pulse Ox 36.4 C L 75 16 127/93 H 99 03/21/23 09:08 03/21/23 09:08 03/21/23 09:08 03/21/23 09:08 03/21/23 09:08 Pain Score Most Recent Pain Score: Most Recent Pain Score Pain Level 0 03/21/23 09:08 Assessment Mental Status: Awake (Alert & Oriented to Patient Baseline) Airway and Respiratory Function: Patent airway with normal (patient baseline) respiratory exam Cardiovascular Function: Hemodynamically Stable Hydration Status: Adequately Hydrated Nausea & Vomiting: No Nausea or Vomiting Pain: Pain is tolerable per patient Peripheral Nerve Block: Patient did not receive a nerve block
== END 2023-03-21 09:59 | disposition home or self-care (01) ==
PROVIDERS: Visit Provider Obstetrics & Gynecology
PROC: 0UJH8ZZ Inspection of Vagina and Cul-de-sac, Via Natural or Artificial Opening Endoscopic (ICD-10-PCS; CPT 57454; principal; 2023-03-21 07:30)
PROC: (CPT 57454; 2023-03-21 07:30)
DX: N87.0 Mild cervical dysplasia (principal); N84.1 Polyp of cervix uteri; R87.820 Cervical low risk human papillomavirus (HPV) DNA test positive; N93.8 Other specified abnormal uterine and vaginal bleeding; D26.0 Other benign neoplasm of cervix uteri
CPT/HCPCS: 57454; 58300; 81025; 88305; J1885; J2001; J2250; J2405; J2704

== ENCOUNTER 2023-12-11 10:42 | Outpatient (REF) | payer BC, SELFPAY ==
[2023-12-11 15:49] LABS: Hemoglobin A1C 5.9 % (<5.7)
[2023-12-11 16:02] LABS: ALT 33 U/L (14-59); AST 18 U/L (15-37); Albumin 4.3 g/dL (3.4-5.0); Alkaline Phosphatase 75 U/L (46-116); Anion Gap 11.6 mmol/L (3-11); BUN 10 mg/dL (7-18); Bilirubin, Total 0.3 mg/dL (0.2-1.0); CO2 27.4 mmol/L (21.0-32.0); CREATININE 0.7 mg/dL (0.55-1.02); Calcium 9.1 mg/dL (8.5-10.1); Calculated LDL 67 mg/dL (<100); Chloride 106 mmol/L (98-107); Cholesterol 153 mg/dL (<200); Estimated GFR 103.35 (mL/min/1.73m2); Glucose 115 mg/dL (74-106); HDL Cholesterol 53 mg/dL (40-60); Potassium 3.9 mmol/L (3.5-5.1); Sodium 145 mmol/L (136-145); TSH (W/Ref FT4) 1.77 uIU/mL (0.36-3.74); Total Protein 7.1 g/dL (6.4-8.2); Triglyceride 167 mg/dL (<150)
== END 2023-12-11 10:43 | disposition home or self-care (01) ==
LOC: NCHCN 10:42
PROVIDERS: Visit Provider Nurse Practitioner Family
DX: I10 Essential (primary) hypertension (principal); E78.5 Hyperlipidemia, unspecified; R73.09 Other abnormal glucose; Z13.29 Encounter for screening for other suspected endocrine disorder; Z83.49 Family history of other endocrine, nutritional and metabolic diseases
CPT/HCPCS: 80053; 80061; 83036; 84443

== ENCOUNTER → 2024-02-11 19:18 | Outpatient (CLI) | payer BC, SELFPAY ==
--- NOTE | 2024-02-11 16:45 | DI.RAD_ITS ---
Exam(s) XR CHEST 2V PA LATERAL EXAM: XR CHEST 2V PA LATERAL CLINICAL HISTORY: evaluate pathology R05.9 COUGH TECHNIQUE: 2D digital imaging was performed. Two views. COMPARISON: CR CHEST 2 VIEWS PA,LAT from 09/01/[address] neck chest w from 02/21/2019 FINDINGS: HEART: Normal size. Aorta: Not dilated. PULMONARY VASCULATURE: Normal. MEDIASTINUM: Unremarkable. LUNGS: Clear increased density seen in upper to midlung field along the major fissure. Findings cons istent with pneumonia. PLEURAL SPACE: Small left pleural effusion. BONE:Unremarkable for age. SOFT TISSUES: Unremarkable. IMPRESSION: Left upper lobe pneumonia. Small left pleural effusion. DATA REPOSITORY: RADIATION DOSE DELIVERED:
--- NOTE | 2024-02-11 18:20 | DI.VRAD_ITS ---
PROCEDURE INFORMATION: Exam: XR Chest Exam date and time: 02/11/2024 5:24 PM Age: 53 years old Clinical indication: Patient HX: Eval pathology, cough TECHNIQUE: Imaging protocol: Radiologic exam of the chest. Views: 2 views. COMPARISON: CT neck chest w 02/21/2019 7:33 PM FINDINGS: Lungs: Left upper lobe infiltrate. Pleural spaces: Small left pleural effusion. Heart/Mediastinum: Unremarkable. No cardiomegaly. Bones/joints: Unremarkable. IMPRESSION: 1. Left upper lobe infiltrate. 2. Small left pleural effusion. Dictated and Authenticated by: Uriah Munoz MD. Ordering:SUSAN Kahn MD
== END ==
PROVIDERS: Visit Provider Nurse Practitioner Family
DX: R05.9 Cough, unspecified (principal)
CPT/HCPCS: 71046

== ENCOUNTER 2024-06-24 01:20 | Outpatient (CLI) | payer BC, SELFPAY ==
--- NOTE | 2024-06-24 15:42 | DI.MAMMO_ITS ---
Exam(s) MAMMO SCREENING EXAM: MAMMO SCREENING CLINICAL HISTORY: Screening, Z12.31 TECHNIQUE: Bilateral full field digital CC and MLO mammographic images were obtained with 3D tomosyn thesis and utilizing computer aided detection (CAD). COMPARISON: Available for comparison. FINDINGS: Masses/Architectural Distortion: None seen. Microcalcifications: No suspicious pleomorphic-type are seen. Skin Thickening/Nipple Retraction: None. IMPRESSION: 1. No significant interval change with no specific features of malignancy noted. 2. Unless there is more urgent need, screening mammography is recommended, as per [employer] guidelines. BI-RADS Category 1 - Negative Breast Density - Category B - Scattered areas of fibroglandular density Breast density category C or D implies that the patient has dense breast tissue. Dense breast tissue is very common and is not abnormal but dense breast tissue can make it harder to find cancer on a ma mmogram. Also, dense breast tissue may increase their breast cancer risk. This information about the result of the mammogram report was provided to the patient to raise their awareness. Use this report when you speak with the patient about their risks for breast cancer, which includes their family hist ory. At that time, you may recommend for more screening tests (Ultrasound or MRI) as they might be us eful based on their risk. A negative radiographic report should not delay biopsy if a dominant or clinically suspicious mass is present. Up to ten percent of cancers are not identified on mammography. A negative report may reinforce clinical impression. Adenosis and dense breasts may obscure an underlying neoplasm. False positive reports average 6 to 10%. Patient will receive a letter notifying them of these results.
== END 2024-06-24 01:40 ==
LOC: DI 01:20
PROVIDERS: Visit Provider Nurse Practitioner Family
DX: Z12.31 Encounter for screening mammogram for malignant neoplasm of breast (principal); R92.323 Mammographic fibroglandular density, bilateral breasts
CPT/HCPCS: 77063; 77067

== ENCOUNTER → 2025-06-29 02:31 | Outpatient (CLI) | payer BC, SELFPAY ==
--- NOTE | 2025-06-29 | DI.MAMMO_ITS ---
Exam(s) MAMMO SCREENING EXAM: MAMMO SCREENING CLINICAL HISTORY: SCREENING MAMMO Z12.31. TECHNIQUE: Bilateral full field digital CC and MLO mammographic images were obtained with 3D tomosynthesis and utilizing computer aided detection (CAD). COMPARISON: Prior mammograms were reviewed. FINDINGS: There has been no significant change in the appearance and distribution of the fibroglandular tissue. There are no new spiculated masses nor malignant appearing microcalcification groups. There is no significant architectural distortion nor skin thickening-retraction. IMPRESSION: No radiographic evidence of malignancy. BI-RADS Category 1 - Negative Breast Density - Category B - There are scattered areas of fibroglandular density. Breast density Category C or D implies that the patient has dense breast tissue. Dense breast tissue can make it harder to find cancer on a mammogram. Dense breast tissue is also associated with an increased risk of breast cancer. This information about the result of the mammogram report was provided to the patient to raise their awareness. Use this report when you speak with the patient about their risks for breast cancer, which includes their family history. At that time, you may recommend additional screening tests (Ultrasound or MRI) as these tests may add significant information. A negative radiographic report should not delay biopsy if a dominant or clinically suspicious mass is present. Up to ten percent of cancers are not identified on mammography. A negative report may reinforce clinical impression. Adenosis and dense breasts may obscure an underlying neoplasm. False positive reports average 6 to 10%. Patient will receive a letter notifying them of these results.
== END ==
LOC: DI 02:31
PROVIDERS: Visit Provider Nurse Practitioner Family
DX: Z12.31 Encounter for screening mammogram for malignant neoplasm of breast (principal)
CPT/HCPCS: 77063; 77067

== ENCOUNTER 2025-07-06 11:47 | Outpatient (REF) | payer BC, SELFPAY | END 2025-07-06 11:48 | disposition home or self-care (01) | LOC: LBN 11:47 | PROVIDERS: Visit Provider Physician Assistant | DX: B36.9 Superficial mycosis, unspecified (principal); H62.40 Otitis externa in other diseases classified elsewhere, unspecified ear | CPT/HCPCS: 87070; 87205 ==